=== PATIENT | male | born 1990 | race Caucasian/White ===

== ENCOUNTER 2018-04-03 19:36 | Emergency (ER) | payer OTHER ==
[2018-04-03] MEDS: IBUPROFEN 800 MG TAB PO (20:09)
[2018-04-03] MEDS: KETOROLAC 60 MG INJ IM (20:30)
== END 2018-04-03 21:06 | disposition home or self-care (01) ==
LOC: FTE 19:36
DX: S93.402A Sprain of unspecified ligament of left ankle, initial encounter (principal); F17.210 Nicotine dependence, cigarettes, uncomplicated; X58.XXXA Exposure to other specified factors, initial encounter; Y92.9 Unspecified place or not applicable
CPT/HCPCS: 73610; 96372; 99284-25

== ENCOUNTER 2018-05-13 03:30 | Emergency (ER) | payer OTHER ==
[2018-05-13] MEDS ORDERED: SOD CHLORIDE 0.9% 1,000 ML IV (03:57)
[2018-05-13] MEDS ORDERED: KETOROLAC 30 MG INJ IV (03:57)
[2018-05-13] MEDS: LOPERAMIDE 2 MG CAP PO (04:28)
[2018-05-13] MEDS: KETOROLAC 60 MG INJ IM (04:29)
[2018-05-13] MEDS: HYDROCODONE/APAP (5/325) TAB PO (04:39)
== END 2018-05-13 05:58 | disposition home or self-care (01) ==
LOC: E/R 03:30
DX: R10.30 Lower abdominal pain, unspecified (principal); R19.7 Diarrhea, unspecified; F17.210 Nicotine dependence, cigarettes, uncomplicated
CPT/HCPCS: 74019; 96372; 99284-25

== ENCOUNTER 2018-07-07 01:43 | Emergency (ER) | payer OTHER | END 2018-07-07 03:25 | disposition home or self-care (01) | LOC: FTE 01:43 | DX: L73.9 Follicular disorder, unspecified (principal); F17.210 Nicotine dependence, cigarettes, uncomplicated | CPT/HCPCS: 99283; Z7502 ==